=== PATIENT | female | born 1940 | race Two or more races ===

== ENCOUNTER → 2018-11-23 | Outpatient (CLI) | payer MEDICARE ==
--- NOTE | 2018-11-23 16:07 | RAD ---
Bilateral lower extremity venous ultrasound, 11/23/2018: History: Bilateral leg swelling Duplex evaluation of the deep veins in the lower extremities was performed including grayscale, color-flow and spectral Doppler analysis. The femoral and popliteal veins demonstrate normal compressibility and normal responses to distal augmentation maneuvers. Color imaging of those vessels shows no evidence of intraluminal clot. The visualized deep veins in both calves are patent. IMPRESSION: There is no sonographic evidence of deep vein thrombosis in either lower extremity. Electronically signed by: Lew Byrnes MD (11/23/2018 4:04 PM) [facility]
--- NOTE | 2018-11-23 16:11 | RAD ---
Right popliteal fossa ultrasound, 11/23/2018: HISTORY: Pain There is an elongated fluid collection in the popliteal fossa measuring 4.6 x 3.0 x 0.9 cm. 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 No other abnormality is seen. IMPRESSION: Right popliteal cyst Electronically signed by: Lew Byrnes MD (11/23/2018 4:08 PM) [facility]
== END | disposition home or self-care (01) ==
LOC: US 14:44
PROVIDERS: ATTEND Family Medicine
DX: M71.21 Synovial cyst of popliteal space [Baker], right knee (principal); M79.89 Other specified soft tissue disorders
CPT/HCPCS: 76881; 93970